=== PATIENT | female | born 1940 | race Caucasian/White ===

== ENCOUNTER 2018-09-24 19:35 | Inpatient (IN) | payer OTHER ==
[~2018-09-24] VITALS: Ht 160 cm; Wt 89.4 kg
--- NOTE | ~2018-09-24 | HC ---
[facility] [place] [address] CONSULTATION Name: DAMIR GALAN Room #: 236-P ADM IN M.R.#: [id number] Admission: 09/24/18 ������������������ Attend Phys: Cassy Pantoja Discharge: ������������������ Date of : 44 Report #: [id number] THIS REPORT FOR: //name// CC: Tanisha Pantoja DATE OF SERVICE: 09/24/2018 We were asked by the [facility] Emergency Department to see and evaluate the patient and we did so after transfer to [facility]. HISTORY OF PRESENT ILLNESS: The patient is a 77-year-old who presents with 2 months of cough and wheeze. The patient was seeing her primary physician and expected to be given Lasix for fluid retention. The wheeze and some mild shortness of air led the Emergency Department to order a CT scan with contrast, pulmonary embolism protocol and this showed a 6 cm ascending aorta with a small flap in it. There is no continued dissection along the great vessels and the arch and the descending appear relatively normal. The dissection is limited in scope and does not appear to extend proximal to the sinotubular junction. Parenthetically, I spoke with Dr. Garcia, the radiologist and both he and I agree that this could very well be a chronic dissection. The patient does have a history of coronary artery bypass surgery and has a previous median sternotomy. PAST MEDICAL HISTORY: Also significant for diabetes mellitus, hypothyroidism, sleep apnea, asthma, seizures, lower limb edema. MEDICATIONS AT HOME: Includes Thyroid, Lasix, potassium, Symbicort, Ventolin, acyclovir, atenolol, losartan, lovastatin, levetiracetam and Plavix. ALLERGIES: PENICILLIN CAUSES RASH. FAMILY HISTORY: Not significant for coronary artery disease. SOCIAL HISTORY: The patient is . She and her moved here from [place] where she had her bypass surgery. They have lived in this area since April. The patient is not a smoker. REVIEW OF SYSTEMS: CONSTITUTIONAL: Positive for weight loss and fatigue. Denies fever or chills. EYES: Denies eye pain or vision change. HEENT: Positive for rhinorrhea. Denies headache. RESPIRATORY: Complains of cough, shortness of breath and wheezing. No sputum production. [address] [address] CONSULTATION Name: DAMIR GALAN Room #: 236-P [facility] IN ..#: [id number] Admission: 09/24/18 ������������������ Attend Phys: Cassy Pantoja Discharge: ������������������ Date of : 42 Report #: [id number] CARDIAC: Denies chest pain. No history of angina, but the patient states she is relatively sedentary. Denies palpitations. GASTROINTESTINAL: No nausea, vomiting, diarrhea or pain. GENITOURINARY: No burning, frequency, urgency or blood. MUSCULOSKELETAL: No bone or joint pain. SKIN: No rash or infection. NEUROLOGIC: No motor or sensory deficit. PHYSICAL EXAMINATION: GENERAL: The patient is lying in bed, quite comfortable, awake and alert, oriented and appropriate. VITAL SIGNS: Blood pressure 120/50 by arterial line, heart rate 77, sinus; O2 sat 95% on room air. HEENT: No scleral icterus. NECK: High pitched bruit, right side. CHEST: Clear to auscultation. HEART: Rhythm regular, no murmurs audible. ABDOMEN: Soft, no mass, no tenderness. EXTREMITIES: Trace edema distally. 2+ popliteal pulses bilaterally. I reviewed the CT scan findings with the patient and her family in view of the clinical scenario. This could very well be acute discovery of a chronic problem. The patient is on Plavix. As such, there is risk with both emergent intervention and waiting until the morning because the radiographic impression, is in my experience, more likely reflection of a chronic problem. I have suggested we wait until the morning for a semi-elective approach and obtain a cardiac echo and platelet reaction studies this evening. Family understands the risks on both sides of this equation. Risks of surgery include, but are not limited to, bleeding, infection, anesthesia risks, heart and lung problems, stroke and . Options and alternatives were reviewed. The patient and family agree with my approach, we have organized surgery for urgent repair in the morning. Thank you for the consultation. ��������������������������������������������� ���������������������������������������� By: ��������������������������������������������� 2147 1831 /nt
--- NOTE | ~2018-09-24 | O ---
[facility] [place] [address] OPERATIVE REPORT Name: DAMIR GALAN Room #: 236-P ADM IN M.R.#: [id number] Admission: 09/24/18 ������������������ Attend Phys: Cassy Pantoja Discharge: ������������������ Date of : 42 Report #: [id number] THIS REPORT FOR: //name// CC: Tanisha Pantoja DATE OF SERVICE: 09/25/2018 PREOPERATIVE DIAGNOSIS: Aneurysm of ascending thoracic aorta with dissection. 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 OPERATION: Resection of ascending aortic aneurysm with graft replacement and reimplantation of coronary artery bypass graft with circulatory arrest. SURGEON: Misha Cabrales M.D. BOBTAIL DRIVER: TIFFANY Pang. ANESTHESIA: General. INDICATIONS: The patient is a 77-year-old who was sent from the [place] [facility] Department with ascending aortic aneurysm that also had a dissection flap. The patient was not having pain, but she has had several months of increasing shortness of breath and cough. The CT scan showed a 6 cm ascending aortic aneurysm with obvious dissection flap. The flap did not extend into the arch or descending thoracic aorta. Both the radiologist and I were unsure as to whether this was acute or chronic. Certainly, the clinical scenario was that of a chronic aneurysm; however, the presence of the flap raised the question of acute problems. On note is the fact that the patient had a history of coronary artery bypass surgery and the possibility is that this is a complication from that event. FINDINGS AND TECHNIQUE: After general anesthesia was established, an incision was made below the right clavicle to expose the axillary artery. A 2000 mg of heparin was given and an end-to-side anastomosis was made between a length of the 8 mm woven Dacron and the axillary artery. This was attached to the pump for antegrade flow and eventual antegrade cerebral perfusion. Exposure was obtained through a reoperative sternotomy. The sternal halves were elevated carefully to expose the ascending aorta. We identified the single coronary vein graft coming off of the aneurysm. The right atrium was exposed. A right atrial pursestring was placed for venous drainage. Venous cannula was placed. The full dose heparin was given prior to cannulation. The retroplegia [facility] [address] [place] [address] OPERATIVE REPORT Name: DAMIR GALAN Room #: 236-P [facility] IN M.R.#: [id number] Admission: 09/24/18 ������������������ Attend Phys: Cassy Pantoja Discharge: ������������������ Date of : 42 Report #: [id number] catheter was placed in the coronary sinus and antegrade needle was placed into the aorta. By this time we had confidence that this was a chronic aneurysm rather than an acute dissection. Cardiopulmonary bypass was established. Aorta was cross clamped just below the innominate artery. Antegrade then retrograde cardioplegia were given. Ice was poured into the pericardial well. The heart was stopped. During electromechanical arrest, the repair was performed. Initially, we descended to 25 degrees because of the patent internal mammary graft and later when a decision was made to perform circulatory arrest we went to a full cold. Initially, the aorta was opened and the aortic pathology was identified. There was a large aneurysm with flaps proximally and distally. The tissue was thick and I thought that this would be an opportunity to place a tube graft below the innominate artery and just at the sinotubular junction proximally. I was not comfortable with the exposure distally; however, the decision was made to go full cold and play circulatory arrest. When we reached 18 degrees the pump was turned off briefly. The head vessels were occluded and antegrade cerebral perfusion was performed during our 26 minutes of circulatory arrest. A 26 mm graft was sewn in end-to-end fashion to the distal end of the aneurysm. This was done incorporating all layers. When this was complete, the flow was reestablished and the suture line was inspected and found to be satisfactory. The crossclamp was placed across the distal end of the graft and the graft itself was trimmed and then the proximal anastomosis was made to the sinotubular junction. When this was complete, the crossclamp was removed and the suture line seemed to be satisfactory as well. Cross clamp was reapplied and an aperture was made in the graft and a button of aorta containing the proximal anastomosis was then sewn on to the graft. When this was complete, a root vent was placed in the distal end of the graft, crossclamp was removed, and de-airing maneuvers were performed. It should be mentioned that retrograde cardioplegia was given every 15 minutes throughout the case and it was supplemented with cold blood if we were concerned about cardiac activity. As the patient warmed, nice cardiac activity resumed. Chest tubes and pacing wires were placed. A marker was preserved from the previous operation and remained around the proximal anastomosis. [facility] [address] [place] [address] OPERATIVE REPORT Name: DAMIR GALAN Room #: 236-P [facility] IN M.R.#: [id number] Admission: 09/24/18 ������������������ Attend Phys: Cassy Banegas Scarlett Discharge: ������������������ Date of : 42 Report #: [id number] When the patient was warmed, she was weaned from cardiopulmonary bypass. Venous cannula was removed. Protamine was given. The inflow cannula was removed when we stapled across the 8 mm graft at the axillary artery. When hemostasis was satisfactory, the chest was closed in the usual fashion. The axillary incision was closed in layers as well. The patient was taken to the recovery area in good condition having tolerated the procedure well. All counts were reported as correct. ��������������������������������������������� ���������������������������������������� By: ��������������������������������������������� 1224 1327 /nt
[~2018-09-24 19:35] MED LIST: ACYCLOVIR 400400 MG PO; ATENOLOL 50MG T50 M1 PO; COZAAR 25 MG TA25 M1 PO; KEPPRA1000 MG PO; KLOR-CON 1010 MEQ PO; LASIX 20 MG TAB20 MG PO; LOVASTATIN 20 M20 MG PO; NP THYROID60 MG PO; PLAVIX 75 MG TA75 M1 PO; SYMBICORT160 MCG/4. INH; VENTOLIN HFA 1818 GM INH
[2018-09-24 20:37] VITALS: BP 123/64
[2018-09-24 20:45] VITALS: BP 122/50
[2018-09-24 21:39] LABS: HEMATOCRIT 39.5 % (37.0-47.0); HEMOGLOBIN 13.2 gm/dL (12.0-15.0); MCH 28.4 pg (26.0-34.0); MCHC 33.5 g/dL (28.0-37.0); MCV 84.9 fL (80.0-100.0); RBC 4.66 mil/uL (4.20-5.00); RDW 13.8 % (10.5-14.5); WBC 8.3 thou/uL (4.0-11.0)
[2018-09-24 21:41] LABS: CALCIUM 8.8 mg/dL (8.5-10.1); CREATININE 1.2 mg/dL (0.6-1.0); POTASSIUM 3.3 mmol/L (3.5-5.1)
[2018-09-24 21:46] LABS: ALBUMIN 3.7 g/dL (3.4-5.0); APTT 26.1 Seconds (24.5-32.8); INR 1.1; PROTIME 11.1 Seconds (9.3-11.4); TOTAL BILIRUBIN 0.6 mg/dL (<0.1-1.0); TOTAL PROTEIN 7.6 g/dL (6.4-8.2)
[2018-09-25 00:50] LABS: URINE BILIRUBIN NEGATIVE (Negative); URINE BLOOD NEGATIVE (Negative); URINE CLARITY CLEAR; URINE COLOR YELLOW; URINE GLUCOSE-RANDOM* TRACE (Negative); URINE KETONES NEGATIVE (Negative); URINE LEUKOCYTES-REFLEX NEGATIVE (Negative); URINE NITRITE-REFLEX NEGATIVE (Negative); URINE PROTEIN (DIPSTICK) NEGATIVE (Negative); URINE UROBILINOGEN 0.2 E.U./dl (0.2-1.0)
[2018-09-25 02:07] LABS: MAGNESIUM 1.7 mg/dL (1.8-2.4); TROPONIN-I 0.13 ng/mL (<0.06)
[2018-09-25] MEDS ORDERED: SEROQUEL300 MG PO (02:07)
--- NOTE | 2018-09-25 06:37 | NUR ---
CLIENT ADMITTED TO THE ICU FROM [facility] FOR DIESSECTING AORTA. CARE ASSUMED 09/24/18 @ 2030. CLIENT IS A/O X4 AND AWARE OF CARE BEING PERFORMED. CLIENT HAS EKG DONE AND SHOWS A-FIB AND SALESFORCE ADMINISTRATOR PROVIDER CALLED. NO NEW ORDERS NOTED. 2L/NC, NPO AND SKIN INTACT. CLIENT HAS PIV TO RIGHT AC AND RIGHT WRIST. VOIDS PER BEDPAN. RECEIVING CARDENE GTT PER ORDER FOR CV SURGERY TODAY. CLIENT HAD A LOW KT AND REPLACED ORDERED FROM ONCALL PROVIDER. WILL CONTINUE THE POC AND CONTACT PHYSICIAN IF NEW ONSET CHANGES ARE NOTED. PLEASE SEE [employer] FOR ADDITIONAL QUESTION AND/OR CONCERNS.
[2018-09-25 06:59] LABS: CALCIUM 8.8 mg/dL (8.5-10.1); CREATININE 1.1 mg/dL (0.6-1.0); POTASSIUM 4.1 mmol/L (3.5-5.1)
--- NOTE | 2018-09-25 07:40 | EKG ---
[address] [place] [address] ELECTROCARDIOGRAM REPORT Name: DAMIR GALAN Room #: 236-P ADM IN M.R.#: [id number] ������������������ Admission: 09/24/18 ������������������ Attend Phys: Cassy Pantoja Discharge: ������������������ Date of : 42 Report #: [id number] ����������������������������������������������������������������� [id number] THIS REPORT FOR: //name// [facility] Test Date: 2018-09-25 Test Time: 06:17:28 Pat Name: DAMIR GALAN Department: Room: 236 P Gender: F Tractor Driver: CHRISTINA : 1940 Requested By: Criselda De Leon Order Number: [id number] MD: Watson Henriquez Measurements Intervals [place] Rate: 73 P: GA: QRS: 7 QRSD: 78 T: 27 QT: 482 QTc: 532 Interpretive Statements Atrial fibrillation Paired ventricular premature complexes Nonspecific T wave abnormality Prolonged QT interval No previous ECG available for comparison Electronically Signed On 09-25-2018 7:40:40 CDT by Watson Henriquez [email or web address] ��������������������������������������������� <ELECTRONICALLY SIGNED> ���������������������������������������� By: Watson Henriquez MD, [facility] ��������������������������������������������� 09/25/18 0740 0617 6 Watson Henriquez MD, FACC /EPI
[2018-09-25 17:33] LABS: MCH 30.1 pg (26.0-34.0); MCHC 34.3 g/dL (28.0-37.0); MCV 87.8 fL (80.0-100.0); RBC 2.01 mil/uL (4.20-5.00); RDW 13.9 % (10.5-14.5); WBC 16.6 thou/uL (4.0-11.0)
[2018-09-25 17:34] LABS: HEMOGLOBIN 6.1 gm/dL (12.0-15.0)
[2018-09-25 17:35] LABS: HEMATOCRIT 17.7 % (37.0-47.0)
[2018-09-25 17:48] LABS: PROTIME 19.4 Seconds (9.3-11.4)
[2018-09-25 17:50] LABS: APTT 35.9 Seconds (24.5-32.8); FIBRINOGEN 92.2 mg/dL (210-360); INR 1.9
[2018-09-25 18:48] LABS: POC BE 0 mmol/L (-2.0 to +3.0); POC CA IONIZED 4.3 mg/dL (4.5-5.3); POC GLUCOSE 164 mg/dL (70-99); POC HCO3 24.8 mmol/L (22.0-26.0); POC HEMOGLOBIN 7.8 g/dL (12.0-15.0); POC POTASSIUM 4.3 mmol/L (3.5-5.1); POC SODIUM 143 mmol/L (136-145); POC pCO2 40.7 mmHg (35.0-45.0); POC pH 7.393 (7.360-7.450)
[2018-09-25 18:48] LABS: POC BE -1 mmol/L (-2.0 to +3.0); POC CA IONIZED 3.9 mg/dL (4.5-5.3); POC GLUCOSE 162 mg/dL (70-99); POC HEMOGLOBIN 6.8 g/dL (12.0-15.0); POC POTASSIUM 4.3 mmol/L (3.5-5.1); POC SODIUM 143 mmol/L (136-145); POC pCO2 39.8 mmHg (35.0-45.0); POC pH 7.389 (7.360-7.450)
[2018-09-25 18:48] LABS: POC BE -2 mmol/L (-2.0 to +3.0); POC CA IONIZED 3.6 mg/dL (4.5-5.3); POC GLUCOSE 182 mg/dL (70-99); POC HCO3 21.8 mmol/L (22.0-26.0); POC HEMOGLOBIN 7.5 g/dL (12.0-15.0); POC POTASSIUM 4.2 mmol/L (3.5-5.1); POC SODIUM 142 mmol/L (136-145); POC pCO2 32.7 mmHg (35.0-45.0); POC pH 7.431 (7.360-7.450)
[2018-09-25 18:48] LABS: POC BE 2 mmol/L (-2.0 to +3.0); POC CA IONIZED 3.6 mg/dL (4.5-5.3); POC GLUCOSE 177 mg/dL (70-99); POC HCO3 27.6 mmol/L (22.0-26.0); POC HEMOGLOBIN 5.4 g/dL (12.0-15.0); POC SODIUM 142 mmol/L (136-145); POC pCO2 47.1 mmHg (35.0-45.0); POC pH 7.376 (7.360-7.450)
[2018-09-25 18:48] LABS: POC BE -3 mmol/L (-2.0 to +3.0); POC CA IONIZED 3.6 mg/dL (4.5-5.3); POC GLUCOSE 159 mg/dL (70-99); POC HCO3 21.5 mmol/L (22.0-26.0); POC HEMOGLOBIN 6.5 g/dL (12.0-15.0); POC SODIUM 141 mmol/L (136-145); POC pCO2 34.7 mmHg (35.0-45.0); POC pH 7.402 (7.360-7.450)
[2018-09-25 18:48] LABS: POC BE -2 mmol/L (-2.0 to +3.0); POC CA IONIZED 3.7 mg/dL (4.5-5.3); POC GLUCOSE 178 mg/dL (70-99); POC HCO3 23.2 mmol/L (22.0-26.0); POC HEMOGLOBIN 6.1 g/dL (12.0-15.0); POC POTASSIUM 4.4 mmol/L (3.5-5.1); POC SODIUM 141 mmol/L (136-145); POC pCO2 41.5 mmHg (35.0-45.0); POC pH 7.355 (7.360-7.450)
[2018-09-25 18:48] LABS: POC BE -3 mmol/L (-2.0 to +3.0); POC CA IONIZED 3.8 mg/dL (4.5-5.3); POC GLUCOSE 194 mg/dL (70-99); POC HCO3 23.2 mmol/L (22.0-26.0); POC HEMOGLOBIN 6.1 g/dL (12.0-15.0); POC POTASSIUM 5.4 mmol/L (3.5-5.1); POC SODIUM 140 mmol/L (136-145); POC pCO2 45.9 mmHg (35.0-45.0); POC pH 7.312 (7.360-7.450)
[2018-09-25 18:48] LABS: POC BE -4 mmol/L (-2.0 to +3.0); POC CA IONIZED 4.5 mg/dL (4.5-5.3); POC GLUCOSE 205 mg/dL (70-99); POC HCO3 22.4 mmol/L (22.0-26.0); POC HEMOGLOBIN 9.2 g/dL (12.0-15.0); POC POTASSIUM 4.2 mmol/L (3.5-5.1); POC SODIUM 143 mmol/L (136-145); POC pCO2 46.3 mmHg (35.0-45.0); POC pH 7.292 (7.360-7.450)
[2018-09-25 18:48] LABS: POC BE -2 mmol/L (-2.0 to +3.0); POC CA IONIZED 3.4 mg/dL (4.5-5.3); POC GLUCOSE 186 mg/dL (70-99); POC HCO3 22.4 mmol/L (22.0-26.0); POC HEMOGLOBIN 7.5 g/dL (12.0-15.0); POC POTASSIUM 3.5 mmol/L (3.5-5.1); POC SODIUM 145 mmol/L (136-145); POC pCO2 34.3 mmHg (35.0-45.0); POC pH 7.422 (7.360-7.450)
[2018-09-25 18:48] LABS: POC BE -8 mmol/L (-2.0 to +3.0); POC GLUCOSE 268 mg/dL (70-99); POC HCO3 19.1 mmol/L (22.0-26.0); POC HEMOGLOBIN 6.1 g/dL (12.0-15.0); POC POTASSIUM 4.1 mmol/L (3.5-5.1); POC SODIUM 145 mmol/L (136-145); POC pCO2 39.8 mmHg (35.0-45.0); POC pH 7.288 (7.360-7.450)
[2018-09-25 18:48] LABS: POC BE -4 mmol/L (-2.0 to +3.0); POC CA IONIZED 3.5 mg/dL (4.5-5.3); POC GLUCOSE 192 mg/dL (70-99); POC HCO3 20.6 mmol/L (22.0-26.0); POC HEMOGLOBIN 7.1 g/dL (12.0-15.0); POC SODIUM 137 mmol/L (136-145); POC pCO2 32.3 mmHg (35.0-45.0); POC pH 7.414 (7.360-7.450)
[2018-09-25 18:48] LABS: POC BE 1 mmol/L (-2.0 to +3.0); POC CA IONIZED 4.4 mg/dL (4.5-5.3); POC GLUCOSE 188 mg/dL (70-99); POC HCO3 24.9 mmol/L (22.0-26.0); POC HEMOGLOBIN 9.9 g/dL (12.0-15.0); POC POTASSIUM 4.1 mmol/L (3.5-5.1); POC SODIUM 142 mmol/L (136-145); POC pH 7.425 (7.360-7.450)
[2018-09-25 19:21] LABS: HEMATOCRIT 25.8 % (37.0-47.0); MCH 29.7 pg (26.0-34.0); MCHC 34.4 g/dL (28.0-37.0); MCV 86.4 fL (80.0-100.0); RBC 2.98 mil/uL (4.20-5.00); RDW 13.7 % (10.5-14.5); WBC 12.5 thou/uL (4.0-11.0)
[2018-09-25 19:22] LABS: HEMOGLOBIN 8.9 gm/dL (12.0-15.0)
[2018-09-25 19:29] LABS: CALCIUM 7.4 mg/dL (8.5-10.1); CREATININE 0.9 mg/dL (0.6-1.0); MAGNESIUM 2.2 mg/dL (1.8-2.4); POTASSIUM 3.5 mmol/L (3.5-5.1)
[2018-09-25 19:37] LABS: APTT 27.6 Seconds (24.5-32.8); INR 1.3; PROTIME 13.3 Seconds (9.3-11.4)
[2018-09-25 19:39] LABS: BE(vivo) -2.4 mmol/L (-2 to +3); PCO2 30.8 mmHg (35.0-45.0); pH 7.451 (7.360-7.450); sO2 99.4 % (92.0-98.0)
[2018-09-25 23:01] LABS: BE(vivo) -1.9 mmol/L (-2 to +3); HCO3 22.4 mmol/L (22.0-26.0); PCO2 35.8 mmHg (35.0-45.0); PO2 173.9 mmHg (80.0-100.0); pH 7.415 (7.360-7.450); sO2 99.2 % (92.0-98.0)
[2018-09-26 04:10] LABS: GLYCOHEMOGLOBIN (HGB A1C) 7.7 % (4.8-5.6)
[2018-09-26 05:24] LABS: HEMOGLOBIN 9.1 gm/dL (12.0-15.0); MCH 30.8 pg (26.0-34.0); MCHC 34.8 g/dL (28.0-37.0); MCV 88.4 fL (80.0-100.0); RBC 2.94 mil/uL (4.20-5.00); RDW 14.6 % (10.5-14.5); WBC 9.5 thou/uL (4.0-11.0)
[2018-09-26 05:32] LABS: INR 1.1; PROTIME 11.3 Seconds (9.3-11.4)
[2018-09-26 05:33] LABS: CALCIUM 7.7 mg/dL (8.5-10.1); CREATININE 1.3 mg/dL (0.6-1.0); MAGNESIUM 2.2 mg/dL (1.8-2.4)
--- NOTE | 2018-09-26 06:41 | NUR ---
Pt back from OR last pm, settled in and monitor applied. See rhythm strips. Dr. Cabrales at bedside for quite a while for large amount of chest tube drainage. Pt's in to speak with Dr. Cabrales and update given. Pt now with stable VS and chest tube drainage minimal. Am lab results noted. SpO2 adequate on current vent settings and propofol gtt off since earlier this am. Pt starting to arouse. PRN fentanyl and hydrocodones given for pain control. Hourly urine output adequate and OGT drainage minimal. Continue with POC.
--- NOTE | 2018-09-26 07:00 | NUR ---
SEE CRITICAL CARE FLOW SHEET FOR NOTES, VS AND GTT TITRATIONS
[2018-09-26 07:40] VITALS: BP 95/54
--- NOTE | 2018-09-26 08:12 | EKG ---
[address] [address] ELECTROCARDIOGRAM REPORT Name: ANGELIADAMIR K Room #: 236-P ADM IN M.R.#: [id number] ������������������ Admission: 09/24/18 ������������������ Attend Phys: Cassy Pantoja Discharge: ������������������ Date of : 42 Report #: [id number] ����������������������������������������������������������������� [id number] THIS REPORT FOR: //name// [facility] Test Date: 2018-09-26 Test Time: 07:05:50 Pat Name: DAMIR GALAN Department: Room: 236 P Gender: F Automotive Glass Mechanic: CHRISTINA : 1940 Requested By: Mal Billingsley Order Number: [id number] MD: González Macdonald Measurements Intervals Edgard Rate: 72 P: MS: QRS: 177 QRSD: 91 T: 166 QT: 445 QTc: 488 Interpretive Statements Atrial fibrillation Anterolateral infarct, age indeterminate Compared to ECG 09/25/2018 06:17:28 Myocardial infarct finding now present Ventricular premature complex(es) no longer present T-wave abnormality no longer present Prolonged QT interval no longer present Electronically Signed On 09-26-2018 8:11:58 CDT by González Macdonald [email or web address] ��������������������������������������������� <ELECTRONICALLY SIGNED> ���������������������������������������� By: González Macdonald MD ��������������������������������������������� 09/26/18 0811 4 4 González Macdonald MD /EPI
--- NOTE | 2018-09-26 11:30 | NUR ---
dr. drake here. reported pt still not opening eyes or moving extremities. no new orders given.
--- NOTE | 2018-09-26 18:42 | NUR ---
END OF SHIFT NOTE. PT POST OP, STARTING TO OPEN EYES BUT NOT DOING ANYTHING TO COMMAND. MOVES LEFT SIDE LOCALIZING BUT NO MOV'T SEEN ON R.. DR. THURMAN AWARE. PT TO CT TODAY. NOW KEEPING SBP 140 IN CASE OF INFARCT. VERONA AWARE KEEPING SBP 140. REMAINS ON CARDENE GTT AT 5MG/HR. EEG IN PROGRESS. MS CHEST TUBES WITH MINIMAL DRAINAGE. REMAINS INTUBATED AND TOLORATING VENT SETTINGS. AMIODARONE GTT. INSULIN GTT.
[2018-09-27] VITALS (18 sets, daily range): BP systolic 111–141; BP diastolic 48–63
--- NOTE | 2018-09-27 06:00 | NUR ---
REMAINS INTUBATED. RIGHT SIDE FLACCID. ONE TIME PT DID MOVE HER LEFT ARM SPONTANEOUSLY. WHEN BEING TURNED. FOLLOWS NO COMMANDS. PUPILS 2 AND SLUGGISH REMAINS IN AFIB. LUNGS DIMINISHED BILAT. CHEST DRESSING DRY AND INTACT. 700 CC UO AND ZERO FROM MED TUBES. BATHED. REPOSITIONED. WILL CONT TO MONITOR.
[2018-09-27 06:25] LABS: HEMATOCRIT 24.5 % (37.0-47.0); HEMOGLOBIN 8.4 gm/dL (12.0-15.0); MCH 30.5 pg (26.0-34.0); MCHC 34.2 g/dL (28.0-37.0); MCV 89.3 fL (80.0-100.0); RBC 2.75 mil/uL (4.20-5.00); RDW 14.8 % (10.5-14.5)
[2018-09-27 06:28] LABS: CALCIUM 7.7 mg/dL (8.5-10.1); CREATININE 1.1 mg/dL (0.6-1.0); POTASSIUM 3.2 mmol/L (3.5-5.1)
--- NOTE | 2018-09-27 09:00 | 2DMMODE ---
[facility] [place] [address] 2 D/M-MODE ECHOCARDIOGRAM Name: DAMIR GALAN Room #: 236-P ADM IN M.R.#: [id number] ������������� Admission: 09/24/18 ������������� Attend Phys: Cassy Frank Discharge: ��� ������������� ��� Date of : 44 Date of Service: 09/27/18 0900 �� Report #: [id number] �������� ��������������������������������������������[id number] THIS REPORT FOR: //name// APPROVED REPORT Study performed: 09/27/2018 07:49:57 EXAM: Comprehensive 2D, Doppler, and color-flow Echocardiogram Patient Location: ICU Room #: [facility] Status: routine BSA: 1.90 HR: 70 bpm BP: 136/52 mmHg Other Information Study Quality: Fair Indications Diabetes Atrial Fibrillation CAD Hypertension/HDD S^P Ascending Aorta Graft Aortic Valve AoV Peak Pan.: 2.07 m/s AO Peak Gr.: 17.08 mmHg LVOT Max P.42 mmHg LVOT Max V: 1.36 m/s AI Vmax: 3.50 m/s AI [place]: 2.16 m/s2 AI PHT: 480.29 ms Mitral Valve E/A Ratio: 1.5 MV Decel. Time: 170.16 ms MV E Max Pan.: 1.37 m/s MV A Pan.: 0.91 m/s MV PHT: 49.35 ms IVRT: 69.20 ms Pulmonary Valve PV Peak Pan.: 0.95 m/s PV Peak Gr.: 3.60 mmHg Pulmonary Vein [facility] [address] [place] [address] 2 D/M-MODE ECHOCARDIOGRAM Name: DAMIR GALAN Room #: 236-P [facility] IN ..#: [id number] ������������� Admission: 09/24/18 ������������� Attend Phys: Cassy Frank Discharge: ��� ������������� ��� Date of : 44 Date of Service: 09/27/18 0900 �� Report #: [id number] �������� ��������������������������������������������[id number] P Vein S: 0.51 m/s P Vein A: 0.17 m/s P Vein D: 0.33 m/s P Vein A Dur.: 101.5 msec P Vein S/D Ratio: 1.55 Tricuspid Valve TR Peak Pan.: 2.61 m/s TR Peak Gr.: 27.18 mmHg PA Pressure: 27.00 mmHg Shunt Evaluation QP/QS: 0.00 Left Ventricle The left ventricle is normal size. There is normal LV segmental wall motion. There is normal left ventricular wall thickness. The left ventricular systolic function is normal. The left ventricular ejection fraction is within the normal range. LVEF is 60-65%. The left ventricular diastolic function is normal. Right Ventricle The right ventricle is normal size. The right ventricular systolic function is normal. Pacemaker lead is present in the right ventricle. Atria The left atrium size is normal. The right atrium size is normal. Pacemaker lead is present in the right atrium. Aortic Valve The aortic valve is not well visualized. Appears mildly sclerotic Mild aortic regurgitation. There is no aortic valvular stenosis. Mitral Valve Mild mitral annular calcification Trace mitral regurgitation. No evidence of mitral valve stenosis. Tricuspid Valve The tricuspid valve is normal in structure. There is mild tricuspid regurgitation. Estimated PAP 27 mmHg plus the right atrial pressure. There is mild pulmonary hypertension. Pulmonic Valve The pulmonary valve is normal in structure. Trace pulmonic regurgitation. Great Vessels [facility] [address] [place] [address] 2 D/M-MODE ECHOCARDIOGRAM Name: DAMIR GALAN Room #: 236-P ADM IN M.R.#: [id number] ������������� Admission: 09/24/18 ������������� Attend Phys: Cassy Frank Discharge: ��� ������������� ��� Date of : 44 Date of Service: 09/27/18 09 �� Report #: [id number] �������� ��������������������������������������������[id number] The aortic root is normal in size. IVC is not well visualized. Pericardium There is no pericardial effusion. <Conclusion> The left ventricular systolic function is normal. There is normal LV segmental wall motion. LVEF 60-65%. The aortic valve is not well visualized. Appears mildly sclerotic. Mild aortic regurgitation, no stenosis. Mild mitral annular calcification. Trace mitral regurgitation. There is mild tricuspid regurgitation. Estimated PAP 27 mmHg plus the right atrial pressure. There is no pericardial effusion. ��������������������������������������������� <ELECTRONICALLY SIGNED> ���������������������������������������� By: Watson Henriquez MD, [facility] ��������������������������������������������� 09/27/18 09 9 9 Watson Henriquez MD, FAC /INF
--- NOTE | 2018-09-27 09:13 | NUR ---
Pt has been npo x 3 days. Consider start enteral nutrition of vital AF 1.2 start 30ml/hr to reach final goal of 50ml/hr
--- NOTE | 2018-09-27 14:56 | NUR ---
Pt is currently in ICU on the vent s/p AAA with graft. Chart reviewed and case discussed with the care team. Pt's spouse was here earlier but has gone home to rest. The pt has had poor neuro response postop and is going down for an MRI this afternoon to r/o brainstem stroke. Cm interventions are uncertain at this time. Will be available for family support as needed.
--- NOTE | 2018-09-27 18:08 | NUR ---
ASSESSMENS DOCUMENTED. PT NON-RESPONSIVE. DOES NOT FOLLOW COMMANDS OR OPEN EYES. CORNEAL REFLEX AND WITHDRAWLS FROM PAINFUL STIMULI. NOT ON ANY SEDATION. REMAINS INTUBATED. BILATERAL SOFT WRIST RESTRAINTS. NO CHANGES TO VENT SETTINGS. [employer] CT X2 REMOVED. PACER WIRES PULLED BY PHYSICIAN GATEMAN. SWAN D/C'D. L-RADIAL ARTLINE REMAINS INTACT. ON INSULIN GTT, AMIO GTT, CARDENE GTT, AND MAINTAINECE FULIDS. K+ REPLACED PER ELECTROLYE PROTOCOL. MRI DONE THIS EVENING. RESULTS COMMUNICATED TO DR. COREA - NO NEW ORDERS.
[2018-09-28] VITALS (22 sets, daily range): BP systolic 119–143; BP diastolic 52–64
[2018-09-28 05:24] LABS: HEMATOCRIT 24.6 % (37.0-47.0); HEMOGLOBIN 8.2 gm/dL (12.0-15.0); MCHC 33.1 g/dL (28.0-37.0); MCV 90.7 fL (80.0-100.0); RBC 2.72 mil/uL (4.20-5.00); RDW 14.9 % (10.5-14.5); WBC 15.5 thou/uL (4.0-11.0)
[2018-09-28 05:30] LABS: CALCIUM 7.9 mg/dL (8.5-10.1); CREATININE 0.9 mg/dL (0.6-1.0); POTASSIUM 3.5 mmol/L (3.5-5.1)
--- NOTE | 2018-09-28 06:00 | NUR ---
PT REMAINS INTUBATED AND NONRESPONSIVE. CARDENE GTT AT 5 MG TO KEEP SBP <150 AMIO GTT 23 CC/HR INSULIN GTT AT 3 UNITS ACCUCHECK 126 REMAINSD IN AFIB RATE 72 1000 CC UO THIS SHIFT. CHEST DRESSING DRY AND INTACT. KELLI WOUND VAC INTACT. PULSES INTACT BATHED. WILL CONT TO MONITOR CLOSELY.
--- NOTE | 2018-09-28 10:20 | EEG ---
[facility] [place] [address] ELECTROENCEPHALOGRAM Name: DAMIR GALAN Room #: 236-P ADM IN M.R.#: [id number] ������������������ Admission: 09/24/18 ������������������ Attend Phys: Cassy Castorena Discharge: ������������������ Date of : 44 Report #: [id number] ����������������������������������������������������������������� [id number] THIS REPORT FOR: //name// CC: Tanisha Pantoja DATE OF SERVICE: 09/26/2018 This patient is being evaluated for altered mental status. EEG was done to further evaluate that. EEG was done by placing the electrode by standard 10-20 system of electrode placement. Both referential and sequential montages were used for recording. Background activity in this patient's EEG is about 5-6 Hz and 30 microvolt. Photic stimulation is unremarkable. Triphasic waves are present. IMPRESSION: This is an abnormal EEG, which would be consistent with the diagnosis of encephalopathy. However, the finding is nonspecific and therefore, clinical correlation is recommended. Repeat EEG can be done for comparison as clinically indicated. Thank you very much for this referral. ���������������������������������������� <ELECTRONICALLY SIGNED> ���������������������������������������� By: Héctor Keller MD ��������������������������������������������� 09/28/18 1020 0824 0832 Héctor Keller MD /nt
--- NOTE | 2018-09-28 18:15 | NUR ---
ASSESSMENTS DOCUMENTED. VSS. CARDENE GTT, INSULIN GTT, MAINTAINENCE FLUIDS. K+ REPLACED PER ELECTROLYTE PROTOCOL. LONG DISCUSSIONS WITH PHYSICANS ABOUT PT PROGNOSIS AFTER MRI RESULTS. FAMILY AT BEDSIDE THROUGH OUT THE DAY - DECIDED THEY WILL EXTUBATE AND CONTINUE WITH COMFORT CARES AFTER ALL FAMILY IS IN TOWN THIS EVEN. TO CALL HOSPITALIST FOR COMFORT CARE ORDERS ONCE FAMILY IS READY.
--- NOTE | 2018-09-28 20:53 | NUR ---
ASSUMED CARE OF PT AT 1900. PT UNAROUSABLE. DOES WITHDRAW TO PAINFUL STIMULI ON HER BILATERAL LOWER EXTREMETIES, CORNEAL REFLEX ON HER LEFT EYE, AND PUPILS ARE UNEQUAL BUT REACTIVE TO LIGHT. DAUGHTER ARRIVED FROM [place] AT APPROXIMATELY 1999, SHE WAS UPDATED AT BEDSIDE ON CURRENT HOSPITALIZATION. DR YAN WAS CALLED AT 2009 AND ASKED TO UPDATE DAUGHTER THROUGH THE PHONE. DAUGHTER STATES THAT HER SON IS ALSO ON HIS WAY TO THE HOSPITAL TO SEE PATIENT. PT A FIB ON THE MONITOR RATE CONTROL. VSS. NO APPARENT PAIN. NO BM. GOOD UO. WILL CONTINUE TO MONITOR PT.
--- NOTE | 2018-09-29 08:41 | NUR ---
Pt PRIOR TO EVALUATION BEING COMPLETE
--- NOTE | 2018-09-30 13:17 | EKG ---
[address] [address] ELECTROCARDIOGRAM REPORT Name: DAMIR GALAN Room #: 236-[facility] IN M.R.#: [id number] ������������������ Admission: 09/24/18 ������������������ Attend Phys: Cassy Pantoja Discharge: 09/28/18 ������������������ Date of : 44 Report #: [id number] ����������������������������������������������������������������� [id number] THIS REPORT FOR: //name// [facility] Test Date: 2018-09-28 Test Time: 07:08:57 Pat Name: DAMIR GALAN Department: Room: 236 P Gender: F Director Of Curriculum: MARLENY : 1940 Requested By: Watson Henriquez Order Number: [id number] MD: Watson Henriquez Measurements Intervals [place] Rate: 72 P: [place]: QRS: 11 QRSD: 90 T: -40 QT: 537 QTc: 588 Interpretive Statements Atrial fibrillation Nonspecific ST and T wave abnormality Prolonged QT interval Compared to ECG 09/26/2018 07:05:50 Prolonged QT interval now present Myocardial infarct finding no longer present Electronically Signed On 09-30-2018 13:17:33 CDT by Watson Henriquez [email or web address] ��������������������������������������������� <ELECTRONICALLY SIGNED> ���������������������������������������� By: Watson Henriquez MD, [facility] ��������������������������������������������� 09/30/18 1317 [id number] Watson Henriquez MD, [facility] /EPI
--- NOTE | 2018-10-01 12:06 | PATH ---
[facility] [address] [place] [address] PATHOLOGY RPT PROCEDURE Name: SHANNAN LAURA Room #: 236-[facility] IN M.R.#: [id number] ������������������ Admission: 09/24/18 ������������������ Date of : 44 Discharge: 09/28/18 Report #: [id number] Path Case #: [id number] [facility] Accession Number: [id number] . 01 Material submitted: . SEGMENT THORACIC AORTA . 01 Clinical history: . Ascending thoracic aortic aneurysm . 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 (IUV/db; 09/27/2018) LBQ/09/27/2018 . 02 Electronically signed: . Ninoska Rowell MD, Pathologist NPI- [id number] . 01 Gross description: . The specimen is received in formalin, labeled "Shannan Laura, segment thoracic aorta" and consists of a rubbery segment of white-allan and partially hemorrhagic tissue measuring 3.5 x 2.8 x 0.6 cm. Pc Support Specialist sections are submitted in A1. (SDY; 09/26/2018) SYU/SYU . 02 Pathologist provided ICD-10: I71.2 . 02 CPT . 608128 Specimen Comment: A courtesy copy of this report has been sent to Specimen Comment: [phone], , , . Specimen Comment: Report sent to ,DR LA,DR HERNANDEZ / DR PIZARRO Specimen Comment: A duplicate report has been generated due to demographic updates. Performed at: [address], [place] [id number] MD Laurent Lord MD Phone: [phone] Performed at: [address] [id number] MD Ninoska Rowell MD Phone: [phone]
== END 2018-09-28 23:13 | DRG 219 ==
LOC: ICU 19:35
PROVIDERS: Nurse Practitioner Acute Care; Nurse Practitioner Family; Physician Assistant; Surgery Vascular Surgery; ADMIT Hospitalist
PROC: 5A1221Z Performance of Cardiac Output, Continuous (ICD-10-PCS; principal; 2018-09-25)
PROC: 02RX0JZ Replacement of Thoracic Aorta, Ascending/Arch with Synthetic Substitute, Open Approach (ICD-10-PCS; principal; 2018-09-25)
PROC: 02S00ZZ Reposition Coronary Artery, One Artery, Open Approach (ICD-10-PCS; principal; 2018-09-25)
PROC: 5A1945Z Respiratory Ventilation, 24-96 Consecutive Hours (ICD-10-PCS; 2018-09-25)
DX: I71.01 Dissection of thoracic aorta (principal); N17.0 Acute kidney failure with tubular necrosis; I71.4 Abdominal aortic aneurysm, without rupture; E11.9 Type 2 diabetes mellitus without complications; E03.9 Hypothyroidism, unspecified; J45.909 Unspecified asthma, uncomplicated; I50.9 Heart failure, unspecified; Z96.652 Presence of left artificial knee joint; I25.10 Atherosclerotic heart disease of native coronary artery without angina pectoris; E78.5 Hyperlipidemia, unspecified; I11.0 Hypertensive heart disease with heart failure; G40.909 Epilepsy, unspecified, not intractable, without status epilepticus; G47.33 Obstructive sleep apnea (adult) (pediatric); Z77.22 Contact with and (suspected) exposure to environmental tobacco smoke (acute) (chronic); I48.0 Paroxysmal atrial fibrillation; Z95.1 Presence of aortocoronary bypass graft; Z88.0 Allergy status to penicillin; Z95.5 Presence of coronary angioplasty implant and graft; Z87.11 Personal history of peptic ulcer disease; Z98.42 Cataract extraction status, left eye; Z98.41 Cataract extraction status, right eye; Z82.49 Family history of ischemic heart disease and other diseases of the circulatory system; Z79.899 Other long term (current) drug therapy
CPT/HCPCS: 10078; 47000; 47001; 47002; 47297; 47375; 47382; 48888; 50011; 50149; 50172; 50409; 50456; 50497; 51165; 51238; 51255; 51965; 52056; 52088; 52095; 52131; 52259; 52314; 53327; 53358; 54118; 55415; 56524; 56525; 56526; 56527; 56528; 56531; 56639; 57093; 57116; 62110; 62950; 65003; 65020; 65047; 65090; 65120; 65135; 83006